=== PATIENT | male | born 1990 | race African-American/Black ===

== ENCOUNTER 2018-11-09 20:04 | Emergency (ER) | payer MEDICAID, OTHER ==
[~2018-11-09] VITALS: Ht 190.5 cm; Wt 82.0 kg
[~2018-11-09 20:04] MED LIST: insulin
[2018-11-09] MEDS: IBUPROFEN 800MG TABLET PO ONE (21:44)
[2018-11-09 22:43] VITALS: BP 112/70
== END 2018-11-09 22:30 | disposition home or self-care (01) ==
LOC: ER 20:04
DX: S62.622A Displaced fracture of middle phalanx of right middle finger, initial encounter for closed fracture (principal); W18.39XA Other fall on same level, initial encounter; Y93.51 Activity, roller skating (inline) and skateboarding; Y92.89 Other specified places as the place of occurrence of the external cause; Y99.8 Other external cause status
CPT/HCPCS: 29130; 73140; 99283